=== PATIENT | female | born 1955 | race Hispanic/Latino ===

== ENCOUNTER → 2023-04-15 | Outpatient (CLI) | payer OTHER ==
[~2023-04-15] MED LIST: BILBERRY PO; CETI10TA57 PO; CHOL50004 PO; FENO145T26 PO; GABA300C PO; INSLAN SQ; INSU100C6 SQ; KRIL1CAP12 PO; METF-446 PO; OMEP20TA20 PO; PRAV20TA4 PO; TRIA15CR48 TP; UBID400C8 PO; VALS1TAB4 PO
== END | disposition home or self-care (01) ==
LOC: SHCH 10:50
PROVIDERS: ATTEND Student in an Organized Health Care Education/Training Program
DX: I11.9 Hypertensive heart disease without heart failure (principal); I35.8 Other nonrheumatic aortic valve disorders; R94.31 Abnormal electrocardiogram [ECG] [EKG]; E11.9 Type 2 diabetes mellitus without complications; E78.5 Hyperlipidemia, unspecified
CPT/HCPCS: 93306

== ENCOUNTER → 2023-04-29 | Outpatient (CLI) | payer OTHER | END | disposition home or self-care (01) | LOC: SHCH 14:51 | PROVIDERS: ATTEND Student in an Organized Health Care Education/Training Program | DX: I70.203 Unspecified atherosclerosis of native arteries of extremities, bilateral legs (principal) | CPT/HCPCS: 93925 ==